=== PATIENT | male | born 1960 | race Caucasian/White ===

== ENCOUNTER 2018-11-16 19:18 | Emergency (ER) | payer OTHER ==
[~2018-11-16 19:18] MED LIST: ACY200 PO; ACYC-57 PO; CALC500C PO; FISH OIL1 CAP PO; IBU200 PO; LEV125 PO; MULT-820 PO; PLAN450T3 PO; QUET50TA21 PO; nasal spray
[2018-11-16] MEDS ORDERED: LOSA50TA80 PO (19:25)
[2018-11-16] MEDS ORDERED: ASPI-1471 PO (19:25)
--- NOTE | 2018-11-16 19:40 | ER Report ---
History and Physical Time Seen By MD: 19:40 Hx. of Stated Complaint: PT REPORTS BP ISSUES- HIGH AT HOME. PT REPORTS CP THAT STARTED 3 DAYS AGO AND "FEELING FUNNY" HPI/ROS CHIEF COMPLAINT: elevated blood pressure, chest with funny feeling. HISTORY OF PRESENT ILLNESS: This is a 58 year old male. He sees Dr. Morgan, and recently having blood pressure issues. Is on Losartan 50mg once a day. Having a funny feeling in chest, not really pain or palpitations, possibly more of a pressure. Also feeling a little shaky and light headed. Mild headache. No new vision changes tonight. No weakness or numbness. Has no nausea or vomiting. No abdominal pain. No shortness of breath. Normal bowel and bladder function. He has been keeping track of his blood pressures and showed me his log, multiple elevated pressures, some the last 48 hours that are in the dangerous or critical range. Allergies: Coded Allergies: gluten (Verified Adverse Reaction, Unknown, 11/16/18) Home Meds Active Scripts Amlodipine Besylate (AMLODIPINE BESYLATE) 5 Mg Tablet, 1 TAB PO QDAY, #30 TAB 0 Refills Prov:PHI BENNETT MD 11/16/18 Reported Medications Aspirin (ASPIR 81) 81 Mg Tablet.dr, 81 MG PO QDAY, TAB 11/16/18 Losartan Potassium (LOSARTAN POTASSIUM) 50 Mg Tablet, 50 MG PO QDAY 11/16/18 Levothyroxine Sodium (LEVOTHYROXINE SODIUM) 0.125 Mg Tab, 0.125 MG PO QDAY, TAB 06/09/14 Acyclovir (Zovirax) 800 Mg Tablet, 800 MG PO QDAY 05/25/12 Quetiapine Fumarate (Seroquel) 50 Mg Tablet, 75 MG PO QHS 05/25/12 Reviewed Nurses Notes: Yes Constitutional Vital Sign - Last 24 Hours 11/16/18 11/16/18 11/16/18 19:20 21:10 21:53 Temp 98.2 Pulse 64 52 59 Resp 16 15 16 B/P (MAP) 202/122 134/91 (105) 132/93 (106) Pulse Ox 95 95 95 O2 Delivery Room Air Room Air Room Air Physical Exam General Appearance: The patient is alert. No acute distress. Eyes: Pupils are equal, round. No pallor, injection or icterus. Extraocular movements are intact. Reactive to light. ENT: Mucous membranes are moist. Normal oral mucosa. Posterior oropharynx is normal. Neck: Supple and non tender. Respiratory: Lungs are clear to auscultation. Cardiovascular: Regular rate and rhythm. No murmurs, gallops or rubs. Normal capillary refill. No edema. Gastrointestinal: Abdomen is soft and non tender. Nondistended. Normal active bowel sounds. Neurological: Alert and oriented x3. No focal neurologic deficits noted. Cranial nerve exam with eye exam as noted above, midline tongue, symmetric palate elevation, no facial weakness, normal facial sensation. Extremities have normal strength which is equal bilaterally, normal sensation bilaterally. Also with normal coordination with finger to nose and heel to moore. Skin: Warm and dry. DIFFERENTIAL DIAGNOSIS: After history and physical exam, differential diagnosis was considered for elevated blood pressure with symptoms of chest pressure as well as mild headache. We will check for evidence of end organ effect of blood pressure and provide a little bit of labetalol to bring this down to more safe level at this time. Medical Decision Making Data Points Result Diagram: 11/16/18193411/16/181934 Laboratory Hematology Test 11/16/18 19:35 11/16/18 20:13 Red Blood Count 5.55 M/uL (4.00-5.60) Mean Corpuscular Volume 90.5 fL (80.0-96.0) Mean Corpuscular Hemoglobin 31.3 pg (26.0-33.0) Mean Corpuscular Hemoglobin Concent 34.6 g/dL (32.0-36.0) Red Cell Distribution Width 13.3 % (11.5-14.5) Mean Platelet Volume 7.9 fL (7.2-11.1) Neutrophils (%) (Auto) 54.4 % (39.4-72.5) Lymphocytes (%) (Auto) 30.3 % (17.6-49.6) Monocytes (%) (Auto) 10.1 % (4.1-12.4) Eosinophils (%) (Auto) 1.5 % (0.4-6.7) Basophils (%) (Auto) 3.7 % (0.3-1.4) Nucleated RBC Relative Count (auto) 0.0 /100WBC Neutrophils # (Auto) 2.7 K/uL (2.0-7.4) Lymphocytes # (Auto) 1.5 K/uL (1.3-3.6) Monocytes # (Auto) 0.5 K/uL (0.3-1.0) Eosinophils # (Auto) 0.1 K/uL (0.0-0.5) Basophils # (Auto) 0.2 K/uL (0.0-0.1) Nucleated RBC Absolute Count (auto) 0.00 K/uL Peripheral Blood Smear Yes Y/N Sodium Level 136 mmol/L (137-145) Potassium Level 3.7 mmol/L (3.5-5.0) Chloride Level 104 mmol/L (98-107) Carbon Dioxide Level 24 mmol/L (22-30) Blood Urea Nitrogen 12 mg/dl (9-21) Creatinine 0.90 mg/dl (0.66-1.25) Glomerular Filtration Rate Calc > 60.0 Random Glucose 100 mg/dl (75-110) Calcium Level 9.6 mg/dl (8.4-10.2) Total Bilirubin 0.8 mg/dl (0.2-1.3) Aspartate Amino Transf (AST/SGOT) 27 U/L (0-35) Alanine Aminotransferase (ALT/SGPT) 23 U/L (0-56) Alkaline Phosphatase 76 U/L (0-126) Troponin I < 0.012 ng/ml B-Type Natriuretic Peptide 17 pg/ml (0-100) Total Protein 7.8 g/dl (6.3-8.2) Albumin 4.6 g/dl (3.5-5.0) Urine Color Straw Urine Clarity Clear Urine pH 7.0 pH (4.8-9.5) Urine Specific [place] 1.003 Urine Protein Negative mg/dL (NEGATIVE) Urine Glucose (UA) Negative mg/dL (NEGATIVE) Urine Ketones Negative mg/dL (NEGATIVE) Urine Blood Negative (NEGATIVE) Urine Nitrite Negative (NEGATIVE) Urine Bilirubin Negative (NEGATIVE) Urine Urobilinogen Negative mg/dL (0.2-1.9) Urine Leukocyte Esterase Negative (NEGATIVE) Urine RBC <1 /HPF (0-2/HPF) Urine WBC <1 /HPF (0-5/HPF) Urine Squamous Epithelial Cells None /LPF (</=FEW) Urine Bacteria Negative /HPF (NONE-FEW) Urine Mucus None /HPF (NONE-FEW) Chemistry Test 11/16/18 19:35 11/16/18 20:13 White Blood Count 5.0 k/uL (4.5-11.0) Red Blood Count 5.55 M/uL (4.00-5.60) Hemoglobin 17.3 g/dL (14.0-18.0) Hematocrit 50.2 % (42.0-52.0) Mean Corpuscular Volume 90.5 fL (80.0-96.0) Mean Corpuscular Hemoglobin 31.3 pg (26.0-33.0) Mean Corpuscular Hemoglobin Concent 34.6 g/dL (32.0-36.0) Red Cell Distribution Width 13.3 % (11.5-14.5) Platelet Count 208 K/uL (150-450) Mean Platelet Volume 7.9 fL (7.2-11.1) Neutrophils (%) (Auto) 54.4 % (39.4-72.5) Lymphocytes (%) (Auto) 30.3 % (17.6-49.6) Monocytes (%) (Auto) 10.1 % (4.1-12.4) Eosinophils (%) (Auto) 1.5 % (0.4-6.7) Basophils (%) (Auto) 3.7 % (0.3-1.4) Nucleated RBC Relative Count (auto) 0.0 /100WBC Neutrophils # (Auto) 2.7 K/uL (2.0-7.4) Lymphocytes # (Auto) 1.5 K/uL (1.3-3.6) Monocytes # (Auto) 0.5 K/uL (0.3-1.0) Eosinophils # (Auto) 0.1 K/uL (0.0-0.5) Basophils # (Auto) 0.2 K/uL (0.0-0.1) Nucleated RBC Absolute Count (auto) 0.00 K/uL Peripheral Blood Smear Yes Y/N Glomerular Filtration Rate Calc > 60.0 Calcium Level 9.6 mg/dl (8.4-10.2) Total Bilirubin 0.8 mg/dl (0.2-1.3) Aspartate Amino Transf (AST/SGOT) 27 U/L (0-35) Alanine Aminotransferase (ALT/SGPT) 23 U/L (0-56) Alkaline Phosphatase 76 U/L (0-126) Troponin I < 0.012 ng/ml B-Type Natriuretic Peptide 17 pg/ml (0-100) Total Protein 7.8 g/dl (6.3-8.2) Albumin 4.6 g/dl (3.5-5.0) Urine Color Straw Urine Clarity Clear Urine pH 7.0 pH (4.8-9.5) Urine Specific [place] 1.003 Urine Protein Negative mg/dL (NEGATIVE) Urine Glucose (UA) Negative mg/dL (NEGATIVE) Urine Ketones Negative mg/dL (NEGATIVE) Urine Blood Negative (NEGATIVE) Urine Nitrite Negative (NEGATIVE) Urine Bilirubin Negative (NEGATIVE) Urine Urobilinogen Negative mg/dL (0.2-1.9) Urine Leukocyte Esterase Negative (NEGATIVE) Urine RBC <1 /HPF (0-2/HPF) Urine WBC <1 /HPF (0-5/HPF) Urine Squamous Epithelial Cells None /LPF (</=FEW) Urine Bacteria Negative /HPF (NONE-FEW) Urine Mucus None /HPF (NONE-FEW) Urinalysis Test 11/16/18 20:13 Urine Color Straw Urine Clarity Clear Urine pH 7.0 pH (4.8-9.5) Urine Specific [place] 1.003 Urine Protein Negative mg/dL (NEGATIVE) Urine Glucose (UA) Negative mg/dL (NEGATIVE) Urine Ketones Negative mg/dL (NEGATIVE) Urine Blood Negative (NEGATIVE) Urine Nitrite Negative (NEGATIVE) Urine Bilirubin Negative (NEGATIVE) Urine Urobilinogen Negative mg/dL (0.2-1.9) Urine Leukocyte Esterase Negative (NEGATIVE) Urine RBC <1 /HPF (0-2/HPF) Urine WBC <1 /HPF (0-5/HPF) Urine Squamous Epithelial Cells None /LPF (</=FEW) Urine Bacteria Negative /HPF (NONE-FEW) Urine Mucus None /HPF (NONE-FEW) EKG/Imaging EKG Interpretation 12 lead EKG: Rhythm: Sinus bradycardia, rate 59 [place]: normal QRS: normal ST segments: normal Imaging CT BRAIN NO CONTRAST Indication: elevated blood pressure Comparison: None. Technique: Noncontrast head CT vertex to the skull base obtained. One of the following dose optimization techniques was utilized in the performance of this exam: automated exposure control; adjustment of the mA and/or kV according to the patient's size; or use of an iterative reconstruction technique. Specific details can be referenced in the facility's radiology CT exam operational policy. Findings: Brain: Patel-white matter differentiation and cortex are maintained. Ventricles and sulci:Ventricles and sulci are symmetric in size. There is no abnormal extra-axial fluid collection or mass. Paranasal sinuses:Visualized paranasal sinuses and mastoid air cells are clear. Calvarium:Bones of the skull and skull base are intact. Orbits and soft tissues: Right and left globes and soft tissues of the head are normal. Impression: Normal head CT. No evidence of infarct hemorrhage mass or fracture. Report Dictated By: Phil Matthew at 11/16/2018 8:35 PM CHEST PA LAT Indication: elevated blood pressure Comparison: None. Findings: Lungs: Clear. Mediastinum/pulmonary vasculature: Heart size and pulmonary vasculature are normal. Bones/soft tissues: Normal. IMPRESSION: Clear lungs. Report Dictated By: Phil Matthew at 11/16/2018 8:42 PM ED Course/Re-evaluation Clinical Indication for ER IV: IV Access ED Course EKG negative, imaging negative. Labs also unremarkable. Labetalol 20 mg IV was given and brought blood pressure down to a more reasonable level although not to normal. Discussed all this with the patient. We'll start him on amlodipine 2.5 mg tonight. We'll continue on 5 mg tomorrow. I did provide a prescription but will hold on to this and talked to Dr. Wasserman tomorrow to see if he would like to continue the amlodipine or something different. Decision to Disposition Date: November 16, 2018 Decision to Disposition Time: 21:57 Depart Departure Latest Vital Signs Vital Signs Date Time Temp Pulse Resp B/P (MAP) Pulse Ox O2 Delivery O2 Flow Rate FiO2 11/16/18 21:53 59 16 132/93 (106) 95 Room Air 11/16/18 19:20 98.2 Impression: Primary Impression: Severe hypertension Additional Impression: Chest pressure Condition: Improved Disposition: HOME OR SELF-CARE Referrals: FLAKITO MORGAN MD (PCP) New Scripts Amlodipine Besylate (AMLODIPINE BESYLATE) 5 Mg Tablet 1 TAB PO QDAY, #30 TAB 0 Refills Prov: PHI BENNETT MD 11/16/18 Patient Instructions: Hypertension (ED) Additional Instructions: We gave you a medicine tonight through the IV to lower your blood pressure and will have you take an oral medicine called Amlodipine. Amlodipine 2.5mg oral dose given here in the ER tonight. Take Amlodipine 5mg in the morning with your Losartan. Call Dr. Morgan's office tomorrow to discuss if he would like you to continue the Amlodipine or if he would like you to take something different. Problem Qualifiers PHI BENNETT MD November 16, 2018 19:40
[2018-11-16] MEDS ORDERED: LABETALOL HCL 100 MG/20ML VIAL IVP ONE (20:00)
--- NOTE | 2018-11-16 20:05 | EKG ---
FACILITY: [facility] PATIENT NAME: NAYELI MAYA : [id number] MR: [id number] V: [id number] EXAM DATE: ORDERING PHYSICIAN: PHI BENNETT TECHNOLOGIST: THAIS Test Reason : CARDIAC Blood Pressure : / mmHG Vent. Rate : 059 BPM Atrial Rate : 059 BPM P-R Int : 160 ms QRS Dur : 098 ms QT Int : 434 ms P-R-T Axes : 027 017 031 degrees QTc Int : 429 ms Sinus bradycardia Nonspecific interventricular conduction delay Possible left atrial enlargement No acute appearing findings Confirmed by MAURIZIO YANG ([id number] on 11/16/2018 8:36:50 PM Referred By: Confirmed By:MAURIZIO YANG
[2018-11-16 20:12] LABS: PLATELET COUNT, AUTOMATED 208 K/uL (150-450)
--- NOTE | 2018-11-16 20:43 | RADIOLOGY IMAGING REPORT ---
FACILITY: [facility] PATIENT NAME: Yonatan Carrillo : 1960 MR: [id number] V: [id number] EXAM DATE: ORDERING PHYSICIAN: PHI BENNETT TECHNOLOGIST: Location: [facility] Patient: Yonatan Carrillo : 1960 Visit/Account:[id number] Date of Sevice: 11/16/2018 CT BRAIN NO CONTRAST Indication: elevated blood pressure Comparison: None. Technique: Noncontrast head CT vertex to the skull base obtained. One of the following dose optimizat ion techniques was utilized in the performance of this exam: automated exposure control; adjustment o f the mA and/or kV according to the patient's size; or use of an iterative reconstruction technique. Specific details can be referenced in the facility's radiology CT exam operational policy. Findings: Brain: Patel-white matter differentiation and cortex are maintained. Ventricles and sulci:Ventricles and sulci are symmetric in size. There is no abnormal extra-axial flu id collection or mass. Paranasal sinuses:Visualized paranasal sinuses and mastoid air cells are clear. Calvarium:Bones of the skull and skull base are intact. Orbits and soft tissues: Right and left globes and soft tissues of the head are normal. Impression: Normal head CT. No evidence of infarct hemorrhage mass or fracture. Report Dictated By: Phil Matthew at 11/16/2018 8:35 PM Report E-Signed By: Phil Matthew at 11/16/2018 8:38 PM WSN:[id number]
--- NOTE | 2018-11-16 20:47 | RADIOLOGY IMAGING REPORT ---
FACILITY: [facility] [place] PATIENT NAME: Yonatan Carrillo : 1960 MR: [id number] V: [id number] EXAM DATE: ORDERING PHYSICIAN: PHI BENNETT TECHNOLOGIST: [place] [facility] [place]: Yonatan Carrillo : 1960 Visit/Account:[id number] Date of Sevice: 11/16/2018 CHEST PA LAT Indication: elevated blood pressure Comparison: None. Findings: Lungs: Clear. Mediastinum/pulmonary vasculature: Heart size and pulmonary vasculature are normal. Bones/soft tissues: Normal. IMPRESSION: Clear lungs. Report Dictated By: Phil Matthew at 11/16/2018 8:42 PM Report E-Signed By: Phil Matthew at 11/16/2018 8:43 PM WSN:[id number]
[2018-11-16 21:53] VITALS: BP 132/93
[2018-11-16] MEDS ORDERED: AMLO-125 PO (22:00)
[2018-11-16] MEDS ORDERED: amLODIPine BESYL(*) 5 MG TAB PO ONE (22:00)
[2018-11-16] MEDS ORDERED: amLODIPine BESYL(*) 2.5 MG TAB PO ONE (22:00)
== END 2018-11-16 22:14 | disposition home or self-care (01) ==
LOC: ER 20:00
DX: I10 Essential (primary) hypertension (principal); R07.89 Other chest pain
CPT/HCPCS: 70450; 71046; 81001; 82040; 82247; 82310; 82374; 82435; 82565; 82947; 83880; 84075; 84132; 84155; 84295; 84443; 84450; 84460; 84484; 84520; 85025; 93005; 96374; 99284